=== PATIENT | female | born 1970 | race Caucasian/White ===

== ENCOUNTER 2019-10-08 17:17 | Emergency (ER) | payer MEDICAID, SELFPAY ==
[2019-10-08] VITALS (7 sets, daily range): BP systolic 134–147; BP diastolic 57–84; PULSE 68–76; RESP 16–18; TEMP 37; O2SAT 92–99; BMI 44.4; BMI 47.1
[2019-10-08 19:12] LABS: Basophils % 0.3 %; Eosinophils % 0.3 %; Hemoglobin 12.2 g/dL (11.5-15.3); Lymphocytes # 2.9 10^3/uL (0.8-4.8); Lymphocytes % 32.4 %; Mean Corpuscular Volume 94.1 fL (81-99); Mean Platelet Volume 9.4 fL (7.4-10.4); Monocytes # 0.5 10^3/uL (0.2-0.9); Neutrophils # 5.5 10^3/uL (1.8-7.7); Neutrophils % 61.6 %; Nucleated Red Blood Cells % 0 %; Platelet Count 296 10^3/cmm (130-400); Red Blood Count 3.93 10^6/uL (4.1-5.3); Red Cell Distribution Width 13.3 % (12.1-15.1); White Blood Count 8.9 10^3/uL (4.0-10.0)
[2019-10-08 19:45] LABS: Alanine Aminotransferase 39 U/L (0-33); Albumin Level 4.1 g/dL (3.5-5.2); Alkaline Phosphatase 123 IU/L (35-105); Anion Gap 16.3 (5-19); Aspartate Amino Transferase 22 U/L (0-32); Blood Urea Nitrogen 27 mg/dL (6-20); Calcium 10.6 mg/Dl (8.6-10.0); Carbon Dioxide 27 mmol/L (22-29); Chloride 102 mmol/L (98-107); Globulin 3.4 g/dL (1.3-4.6); Glomerular Filtration Rate 39.8 mL/min (90-130); Glucose 224 mg/dL (74-109); Potassium 4.3 mmol/L (3.5-5.1); Sodium 141 mmol/L (136-145); Total Bilirubin 0.2 mg/dL (0.15-1.2); Total Protein 7.5 g/dL (6.6-8.7)
--- NOTE | 2019-10-08 21:43 | W.ED.BACK ---
HPI - Back Pain/Injury General: Chief Complaint: Back Pain/Injury Stated Complaint: lower back pain Time Seen by Provider: 10/08/19 21:16 History of Present Illness: HPI Narrative: Patient is a 49-year-old female who comes in to the ED with left flank pain. She states that the pain started today and feels like it's in her kidney. She rated the pain 6 on a 10. She did say that over a week ago she was diagnosed with a UTI and was treated with antibiotics for the UTI. Her symptoms were itching and dysuria but after antibiotic treatment of symptoms went away. Her last dose of antibiotic was on October 06. She denies any dysuria, hematuria or vaginal discharge. Also denies chest pain, shortness of breath, other abdominal pain, nausea, vomiting, fever, chills. Review of Systems General: Reports: 10 or more systems reviewed and unremarkable except in HPI and below PFSH ED PFSH: Statuses (acute, chronic, etc) shown below reflect problem list status as previously entered and may not be historically accurate Medical History Congestive heart failure (Acute) Most recent echocardiogram in March 2019 revealed The ventricles poorly seen. There is probably normal size and function but there are limited views. The parasternal short axis view is the best view for evaluating the left ventricular function. The other views are inadequate. Diastolic function cannot be determined. Wall motion disturbances cannot be determined. This study is equally as poor as the previous study dated 01/27/18. Coronary arteriosclerosis (Acute) Hyperlipidemia (Acute) Patient has a questionable history of intolerance to Crestor. She is not sure whether she is currently taking this medication or not. Hypertension (Acute) Patient's compliance with medication is questionable. She is poorly compliant with the diet. Continues to smoke Sleep apnea (Acute) Patient is on CPAP Family History Other Diabetes Hypertension Social History Smoking and tobacco status: current every day smoker Alcohol intake: current Physical Exam Const: COMMON NORMALS: oriented x3 HENMT: COMMON NORMALS: normocephalic HEAD & SCALP: normocephalic MOUTH: oral and palatal mucosa normal THROAT: posterior oropharynx normal and uvula midline Neck/C-Spine: COMMON NORMALS: supple GENERAL: Yes normal visual inspection Resp: COMMON NORMALS: normal respiratory effort, no retractions, no use of accessory muscles and clear to auscultation bilaterally AUSCULTATION: clear to auscultation bilaterally Cardio: COMMON NORMALS: regular rate, regular rhythm, S1 normal heart sound, S2 normal heart sound, no gallops, no clicks, no murmurs and peripheral pulses 2+ throughout RATE: regular rate RHYTHM: regular rhythm HEART SOUNDS: S1 normal and S2 normal PERIPHERAL PULSES: pulses 2+ throughout GI: COMMON NORMALS: normal to inspection, nondistended, normoactive bowel sounds, soft to palpation, non-tender and no masses INSPECTION: Yes central obesity PALPATION: Yes soft : BLADDER/KIDNEY EXAM: Yes CVA tenderness (moderate) Back/Pelvis: GENERAL BACK: Yes CVA tenderness (moderate) CVA tenderness: left Extremity: GENERAL: Yes normal exam except as noted and Yes amputation (Right leg below the knee) RIGHT LOWER EXTREMITY: Yes lower leg (Amputation below the knee) Neuro: COMMON NORMALS: oriented x3 and moves all extremities Skin: COMMON NORMALS: no rashes or lesions noted GENERAL SKIN EXAM: no rashes or lesions noted Course Vital Signs: Vital signs: Vital Signs Temperature 98.1 F 10/09/19 01:35 Pulse Rate 88 10/09/19 01:35 Respiratory Rate 20 H 10/09/19 01:35 Blood Pressure 139/88 10/09/19 01:35 Pulse Oximetry 98 10/09/19 01:35 MDM - Back Pain/Injury Lab Data: Attestation: I reviewed the patient's lab results. Labs: Lab Results 10/08/19 10/08/19 10/08/19 Range/Units 19:07 19:07 19:32 WBC 8.9 (4.0-10.0) 10^3/ uL RBC 3.93 L (4.1-5.3) 10^6/u L Hgb 12.2 (11.5-15.3) g/dL Hct 37.0 (37.0-47.0) % MCV 94.1 (81-99) fL MCH 31.0 (28.0-34.0) pg MCHC 33.0 (30.0-36.0) g/dL RDW 13.3 (12.1-15.1) % Plt Count 296 (130-400) 10^3/c mm MPV 9.4 (7.4-10.4) fL Neut % (Auto) 61.6 % Lymph % (Auto) 32.4 % Louisa % (Auto) 5.0 % Eos % (Auto) 0.3 % Baso % (Auto) 0.3 % Neut # (Auto) 5.5 (1.8-7.7) 10^3/u L Lymph # (Auto) 2.9 (0.8-4.8) 10^3/u L Louisa # (Auto) 0.5 (0.2-0.9) 10^3/u L Eos # (Auto) 0.0 (0.0-0.8) 10^3/u L Baso # (Auto) 0.0 (0.0-0.1) 10^3/u L Nucleated RBC % (a uto) 0 % Nucleated RBCs # 0.0 /100WBC Sodium 141 (136-145) mmol/L Potassium 4.3 (3.5-5.1) mmol/L Chloride 102 (98-107) mmol/L Carbon Dioxide 27 (22-29) mmol/L Anion Gap 16.3 (5-19) BUN 27 H (6-20) mg/dL Creatinine 1.4 H (0.5-0.9) mg/dL GFR Calculation 39.8 L (90-130) mL/min Glucose 224 H (74-109) mg/dL Calcium 10.6 H (8.6-10.0) mg/Dl Total Bilirubin 0.2 (0.15-1.2) mg/dL AST 22 (0-32) U/L ALT 39 H (0-33) U/L Alkaline Phosphata se 123 H (35-105) IU/L Total Protein 7.5 (6.6-8.7) g/dL Albumin 4.1 (3.5-5.2) g/dL Globulin 3.4 (1.3-4.6) g/dL Urine Color Yellow (Yellow) Urine Appearance Clear (CLEAR) Urine pH 5 (5-7) Ur Specific Gravit y 1.020 (1.005-1.030) Urine Protein 3+ H (Negative) Urine Glucose (UA) Norm (Normal) Urine Ketones Negative (Negative) Urine Occult Blood Neg (Negative) Urine Nitrate Negative (Negative) Urine Bilirubin Neg (NEGATIVE) Urine Urobilinogen Norm (Negative) mg/dL Ur Leukocyte Marielena ase 2+ H (Negative) Urine RBC None (0-2) /hpf Urine WBC 5-10 H (0-5) /hpf Ur Squamous Epith Cells 10-15 H (0-5) Urine Bacteria 1+ H (NONE) Urine Mucus Trace Imaging Data^: CT Abd/Pel: Radiologist's impression: [address] [address] [address] Scan Report Signed Patient: Melvina Macias Unit #: [id number] : 1970 Age/Sex: 49 / F ADM Date: 10/08/19 Loc: ER Room/Bed: Attending Dr: Ordering Provider/Ordering MD: Edison Alcantar Date of Service: 10/08/19 Procedure(s): CT kidney stone 01989 Accession Number(s): [id number] Report Number: [id number] PROCEDURE INFORMATION: Exam: CT Abdomen And Pelvis Without Contrast Exam date and time: 10/08/2019 10:45 PM Age: 49 years old Clinical indication: Abdominal pain; Flank; Left; Additional info: Left flank pain TECHNIQUE: Imaging protocol: Computed tomography of the abdomen and pelvis without contrast. Total DLP: 2184.51 mGy-cm Radiation optimization: All CT scans at this facility use at least one of these dose optimization techniques: automated exposure control; mA and/or kV adjustment per patient size (includes targeted exams where dose is matched to clinical indication); or iterative reconstruction. COMPARISON: CT abdomen pelvis w con* [id number] 04/06/2017 2:13 PM FINDINGS: Heart: Continued cardiomegaly. No pericardial effusion. Liver: No apparent interval liver disease. Gallbladder and bile ducts: Still no calcified gallstones or biliary ductal dilatation. Pancreas: Pancreas still unremarkable. Spleen: Still no splenomegaly. Adrenals: Still no adrenal mass. Kidneys and ureters: Still no hydronephrosis. Stable slight stranding in the perirenal fat bilaterally. No ureteral stone. Stomach and bowel: Unremarkable. No obstruction. No apparent mucosal thickening. Appendix: Normal appendix. Intraperitoneal space: Still no free air. Vasculature: Continued atherosclerosis. Still no aortic aneurysm. Two left renal arteries again evident. Lymph nodes: Calcified nodes in the left lower hilum again evident. Still no enlarged nodes in the abdomen and pelvis. Bladder: Unremarkable as visualized. Reproductive: Unremarkable as visualized. Bones/joints: Old slight compression fractures again evident. Continued degeneration of a few discs. Soft tissues: Interval calcification in the small focus of fat necrosis in the subcutaneous fat in the left anterior abdominal wall. Slight body wall edema again evident. CT/CT kidney stone [id number] IMPRESSION: No acute findings. Radiation Dose CTDIVOL = (mGy): DLP = 2184.51 (mGy-cm) Dictated By: Indu Sierra MD Signed By: Indu Sierra MD Signed Date/Time: 10/09/19110 DD/ 9 Discharge Plan Discharge Patient Disposition: Home, Self-Care Clinical Impression: Acute flank pain Condition: Stable Prescriptions: No Action Novolog U-100 Insulin aspart 100 unit/mL solution 5 unit SUBCUT Q6H RF: 0 turmeric 400 mg capsule PO DAILY RF: 0 ranolazine [Ranexa] 500 mg tablet extended release 12 hr 500 mg PO BID RF: 0 nitroglycerin [Nitrostat] 0.4 mg tablet, sublingual 0.4 mg SUBLINGUAL Q5M PRNRF: 0 gabapentin 800 mg tablet 800 mg PO TID RF: 0 calcium carbonate-vitamin D3 [Calcium 600 with Vitamin D3] 600 mg(1,500mg) -500 unit capsule PO DAILY RF: 0 rosuvastatin [Crestor] 20 mg tablet 20 mg PO DAILY RF: 0 duloxetine [Cymbalta] 60 mg capsule,delayed release(DR/EC) 60 mg PO DAILY RF: 0 tizanidine 2 mg capsule 2 mg PO BID PRNRF: 0 gelatin 650 mg capsule PO BID RF: 0 furosemide [Lasix] 40 mg tablet 80 mg PO BID RF: 0 Lantus Solostar U-100 Insulin 100 unit/mL (3 mL) insulin pen 100 unit SUBCUT .twice a day RF: 0 clopidogrel 75 mg tablet 75 mg PO DAILY RF: 0 Tradjenta 5 mg tablet 5 mg PO QAM RF: 0 pantoprazole 40 mg tablet,delayed release (DR/EC) 40 mg PO QAM RF: 0 metoprolol succinate 25 mg tablet extended release 24 hr 25 mg PO DAILY RF: 0 insulin lispro [Humalog U-100 Insulin] 100 unit/mL solution 5 unit SUBCUT TID RF: 0 clonazepam 0.5 mg tablet 0.25 mg PO BID PRNRF: 0 Discharge Orders: Discharge Order (Routine); Ordered 10/09/19 Ordered By: Edison Alcantar Referrals: Laureano Corrales DO [Primary Care Provider] - Discharge Diet: Regular Discharge Activity: Resume usual activity Activity Restrictions/Additional Instructions: Follow-up with primary care doctor in 5-7 days for reevaluation. Take Tylenol for the pain. He can apply ice or warm moist heat to back to help with pain as well. Return to the ED if symptoms worsen and she developed a fever, problems urinating or blood in the urine. Discharge Date/Time: 10/09/19 01:36 Coding Level of Care Code ED Computer Systems Designer for Kelley Zamorano
[2019-10-08 22:06] LABS: Urine Appearance Clear (CLEAR); Urine Color Yellow (Yellow); pH Urine 5 (5-7)
[2019-10-08 22:07] LABS: Add Urine Microscopic? YES; Bacteria Urine 1+; Bilirubin Urine Neg (NEGATIVE); Blood Urine Neg (Negative); Glucose Urine UA Norm (Normal); Ketones Urine Negative (Negative); Leukocyte Esterase Urine 2+ (Negative); Mucus Urine TRACE; Nitrate Urine Negative (Negative); Protein Urine 3+ (Negative); Urobilinogen Urine Norm (Negative)
--- NOTE | 2019-10-08 22:40 | CTR_ITS ---
PROCEDURE INFORMATION: Exam: CT Abdomen And Pelvis Without Contrast Exam date and time: 10/08/2019 10:45 PM Age: 49 years old Clinical indication: Abdominal pain; Flank; Left; Additional info: Left flank pain TECHNIQUE: Imaging protocol: Computed tomography of the abdomen and pelvis without contrast. Total DLP: 2184.51 mGy-cm Radiation optimization: All CT scans at this facility use at least one of these dose optimization techniques: automated exposure control; mA and/or kV adjustment per patient size (includes targeted exams where dose is matched to clinical indication); or iterative reconstruction. COMPARISON: CT abdomen pelvis w con* [id number] 04/06/2017 2:13 PM FINDINGS: Heart: Continued cardiomegaly. No pericardial effusion. Liver: No apparent interval liver disease. Gallbladder and bile ducts: Still no calcified gallstones or biliary ductal dilatation. Pancreas: Pancreas still unremarkable. Spleen: Still no splenomegaly. Adrenals: Still no adrenal mass. Kidneys and ureters: Still no hydronephrosis. Stable slight stranding in the perirenal fat bilaterally. No ureteral stone. Stomach and bowel: Unremarkable. No obstruction. No apparent mucosal thickening. Appendix: Normal appendix. Intraperitoneal space: Still no free air. Vasculature: Continued atherosclerosis. Still no aortic aneurysm. Two left renal arteries again evident. Lymph nodes: Calcified nodes in the left lower hilum again evident. Still no enlarged nodes in the abdomen and pelvis. Bladder: Unremarkable as visualized. Reproductive: Unremarkable as visualized. Bones/joints: Old slight compression fractures again evident. Continued degeneration of a few discs. Soft tissues: Interval calcification in the small focus of fat necrosis in the subcutaneous fat in the left anterior abdominal wall. Slight body wall edema again evident. CT/CT kidney stone [id number] IMPRESSION: No acute findings. Radiation Dose CTDIVOL = (mGy): DLP = 2184.51 (mGy-cm)
[2019-10-09 01:35] VITALS: BP 139/88; PULSE 88; RESP 20; TEMP 36.7; O2SAT 98
== END 2019-10-09 01:36 | disposition home or self-care (01) ==
PROVIDERS: Emergency Medicine; Emergency Provider Physician Assistant; Family Provider Electrodiagnostic Medicine; PCP Electrodiagnostic Medicine
DX: R10.9 Unspecified abdominal pain (principal); Z79.4 Long term (current) use of insulin; Z79.02 Long term (current) use of antithrombotics/antiplatelets; I11.0 Hypertensive heart disease with heart failure; I50.9 Heart failure, unspecified; E78.5 Hyperlipidemia, unspecified; F17.210 Nicotine dependence, cigarettes, uncomplicated
CPT/HCPCS: 36415; 74176; 80053; 81003; 85025; 99282

== ENCOUNTER 2019-10-13 08:35 | Outpatient (CLI) | payer MEDICAID, SELFPAY ==
--- NOTE | 2019-10-13 08:00 | USCV_ITS ---
Melvina Macias Age: 49 Gender: F : 1970 Exam Date: 10/13/2019 08:57 Ordering Phys: Lesa Candelario MD ([email or web address]) Technologist: Ting Mckeon [place] [facility] [place]: ATHEROSCLEROSIS OF ARTERY Risk Factors: Previous Vascular Surgery: Right Brachial BP: / Left Brachial BP: / Right Left Velocity (cm/s) Spectral Plaque Velocity (cm/s) Spectral Plaque Syst/Diast Broadening Syst/Diast Broadening 98.10/ 17.60 Prox CCA 87.60 / 13.10 89.30/ 19.80 Mid CCA 70.10 / 14.00 44.00/ 11.20 Distal CCA 60.40 / 13.10 58.40/ 13.20 Prox ICA 40.20 / 11.00 72.80/ 24.30 Mid ICA 63.10 / 23.10 70.60/ 25.40 Distal ICA 94.00 / 39.50 106.90 ECA 78.00 0.81 ICA/CCA 1.34 Antegrade Vertebral Antegrade 60.60/ 16.50 cm/s 37.70/ 12.80 cm/s Tri Subclavian Tri 133.4 76.60 0 FINDINGS Mild to moderate heterogeneous plaques bilaterally at the bifurcations. Intimal thickening in the common carotid arteries bilaterally Antegrade flow in the vertebral arteries bilaterally Normal Doppler flow velocities in the external carotid arteries bilaterally CONCLUSIONS Mild to moderate heterogeneous plaques bilaterally at the bifurcations. Intimal thickening in the common carotid arteries bilaterally. No significant stenosis, based on the above findings Dr Lesa Candelario MD [facility] (Electronically Signed) Final Date: 14 October 2019 07:19 S
== END 2019-10-13 08:36 | disposition home or self-care (01) ==
PROVIDERS: Family Provider Electrodiagnostic Medicine; PCP Electrodiagnostic Medicine; Visit Provider Internal Medicine Cardiovascular Disease
DX: I70.8 Atherosclerosis of other arteries (principal); I65.23 Occlusion and stenosis of bilateral carotid arteries
CPT/HCPCS: 93880

== ENCOUNTER 2019-12-04 09:02 | Day surgery (SDC) | payer MEDICAID, SELFPAY ==
[2019-12-03 12:41] VITALS: BMI 47.1
--- NOTE | 2019-12-04 09:11 | ANES.PREANE2 ---
Pre-Anesthetic Assessment Pre-Anesthetic Assessment: Height/Weight: Height 1.68 m Weight 132.449 kg Preop Diagnosis: hematochexzia Proposed Procedure: Operation Date: 12/04/19 10:35 Proposed Procedures p Colonoscopy 25650 K92.1(Not Applicable) - Mart Clement MD Familial anesthetic complications: No Was Beta Ramsey taken within 24 hours: Yes Last intake: off plavix since sunday, NPO > 8 hrs Social: Social History: Tobacco and No alcohol Packs per day: 1 ppd Exam: Pre-Anes Outpt Exam: alert, oriented x 3, clear to auscultation bilaterally and regular rate & rhythm Airway: Cervical ROM: WNL MP: 3 Dentition: Full Pulmonary: Pulmonary: Sleep apnea (Does not wear her cPAP) CV/HEM: CV/HEM: CHF and DC (7 stents (2017 last) still on blood thinners) : : Chronic renal Insufficiency Hepatic: Hepatic: None reported GI: GI: None reported Metabolic: Metabolic: DM and Morbid obesity Musc/skel: Comments: BKA Neuropsych: Neuropsych: Neuropathy (Foot legs and hands) and None reported Anesthetic Plan: ASA status: 4 Anesthesia: MAC Risk of > 500 ml blood loss (7ml/kg in children): No PFSH Anesthesia PFSH: Social History Smoking and tobacco status: current every day smoker Alcohol intake: current Alcohol intake frequency: 0-2 Drinks per Day Data Anesthesia Cardiac Studies: No Data to Display
[2019-12-04 09:41] VITALS: BP 144/71; PULSE 74; RESP 18; TEMP 36.2; O2SAT 97
[2019-12-04] MEDS: sodium chloride 0.9% 1,000 ML 30 ML (09:52)
--- NOTE | 2019-12-04 10:10 | W.PM.OPSUD ---
Surgery/Procedure H&P Update DATE OF PROCEDURE: December 04, 2019 DATE H&P PERFORMED: 11/14/19 H&P UPDATE INFORMATION: I have reviewed H&P completed within last 30 days, I have examined patient prior to procedure and No changes to prior documentation PREOP DIAGNOSIS: hematochexzia PLANNED PROCEDURE: Operation Date: 12/04/19 10:35 Proposed Procedures p Colonoscopy 72227 K92.1(Not Applicable) - Mart Clement MD
[2019-12-04 10:11] LABS: Glucose Point of Care 72 mg/dL (70-110)
[2019-12-04 10:37] VITALS: BP 94/63; PULSE 63; RESP 16; TEMP 36.6; O2SAT 99
[2019-12-04 10:52] VITALS: BP 90/70; PULSE 72; RESP 18; TEMP 36.4; O2SAT 98
[2019-12-04 11:01] VITALS: BP 102/73; PULSE 76; RESP 18; O2SAT 97
== END 2019-12-04 11:05 | disposition home or self-care (01) ==
PROVIDERS: Family Provider Electrodiagnostic Medicine; PCP Nurse Practitioner; Visit Provider Surgery
PROC: 0DJD8ZZ Inspection of Lower Intestinal Tract, Via Natural or Artificial Opening Endoscopic (ICD-10-PCS; CPT 45378; principal; 2019-12-04 10:35)
DX: K92.1 Melena (principal); K64.8 Other hemorrhoids; I11.0 Hypertensive heart disease with heart failure; I50.9 Heart failure, unspecified; E11.40 Type 2 diabetes mellitus with diabetic neuropathy, unspecified; G47.30 Sleep apnea, unspecified; E78.5 Hyperlipidemia, unspecified; Z82.49 Family history of ischemic heart disease and other diseases of the circulatory system; Z83.3 Family history of diabetes mellitus; F17.210 Nicotine dependence, cigarettes, uncomplicated; I25.2 Old myocardial infarction; E66.01 Morbid (severe) obesity due to excess calories; Z68.42 Body mass index [BMI] 45.0-49.9, adult; Z95.5 Presence of coronary angioplasty implant and graft
CPT/HCPCS: 12345; 36416; 45378; 82962; J2704; J3490; J7030

== ENCOUNTER 2020-04-22 14:25 | Outpatient (RCR) | payer MEDICARE, MEDICAID, SELFPAY | END 2020-04-23 23:59 | disposition home or self-care (01) | LOC: MPT 14:25 | PROVIDERS: Family Provider Electrodiagnostic Medicine; PCP Physician Assistant Medical; Referring Provider Psychiatry & Neurology Psychiatry; Visit Provider Psychiatry & Neurology Psychiatry | DX: G89.29 Other chronic pain (principal); E11.610 Type 2 diabetes mellitus with diabetic neuropathic arthropathy; E11.42 Type 2 diabetes mellitus with diabetic polyneuropathy | CPT/HCPCS: 97110; 97140; 97161 ==

== ENCOUNTER 2020-05-25 06:00 | Outpatient (RCR) | payer MEDICARE, SELFPAY | END 2020-06-23 23:59 | disposition home or self-care (01) | LOC: MPT 06:00 | PROVIDERS: PCP Physician Assistant Medical; Referring Provider Psychiatry & Neurology Psychiatry; Visit Provider Psychiatry & Neurology Psychiatry | DX: G89.29 Other chronic pain (principal); E11.610 Type 2 diabetes mellitus with diabetic neuropathic arthropathy; E11.42 Type 2 diabetes mellitus with diabetic polyneuropathy | CPT/HCPCS: 97110; 97113; 97140; 97530 ==

== ENCOUNTER → 2020-11-05 14:50 | Outpatient (BNVA) | payer MEDICARE, MEDICAID, SELFPAY | PROVIDERS: PCP Physician Assistant Medical; Visit Provider Emergency Medicine | DX: R39.9 Unspecified symptoms and signs involving the genitourinary system (principal); N39.0 Urinary tract infection, site not specified; R31.9 Hematuria, unspecified | CPT/HCPCS: 81000; 87077; 87086; 87184 ==